=== PATIENT | female | born 1945 | race Asian ===

== ENCOUNTER → 2021-02-21 13:30 | Outpatient (CLI) | payer MEDICARE, OTHER, SELFPAY ==
--- NOTE | 2021-02-21 | DI.ECHO.S_ITS ---
[facility] +---------+ : : [address] : [place] : : : : [id number] : : : : Phone: [phone]---------+ Echocardiogram Report + + :Name: DAWIT TOMAS Study Date: 02/21/2021 Height: 61 in : :[facility] ReadingLocation: Weight: 119 lb : : Gender: Female BSA: 1.5 m2 : :: 1945 Age: 76 yrs BP: 164/110 mmHg: :Reason For Study: ATRIAL FIBRILLATION : :Ordering Physician: KASI, : :BIPIN Performed By: Soheila Aguilera : :Referring: BIPIN VILLASEÑOR : + + Interpretation Summary Left ventricular systolic function is severely reduced with an estimated ejection fraction of 20 to 25% with severe global hypokinesis that appears to be worse in the mid posterior wall which is akinetic. Left ventricular volumes are surprisingly normal with normal wall thickness. Diastolic function is challenging to assess because of tachycardia but filling pressures are likely significantly elevated. Global longitudinal strain is severely reduced at - 7.2% with sparing of the apex which can be seen in amyloidosis but clinical correlation is recommended. The right ventricle was mild to moderately enlarged with moderately reduced systolic function. There is severe pulmonary hypertension with the right ventricular systolic pressure estimated at 73 mmHg with a CVP of 15 mmHg. There is moderate biatrial enlargement. The cardiac valves appear anatomically normal but with probable at least moderate to severe mitral regurgitation and tricuspid regurgitation. The ascending aorta is mild to moderately enlarged. There is a moderately large left sided pleural effusion. The patient appeared to be in a sinus mechanism with identifiable P waves at 99 to 107 bpm. Procedure: A two-dimensional transthoracic echocardiogram with color flow and Doppler was performed. The study quality was technically good. There is no prior echocardiogram noted for this patient. The patient was in sinus rhythm with heart rates between 99-107 bpm during the exam. Left Ventricle: The left ventricle is normal in size. There is normal left ventricular wall thickness. Left ventricular systolic function is severely reduced. The ejection fraction is estimated to be 20-25%. Left ventricular global longitudinal strain average is -7.2%. There is severe global hypokinesis of the left ventricle. This appears to be worse in the mid posterior wall which appears to be akinetic. Diastolic function could not be accurately assessed due to tachycardia. But filling pressures are likely significantly elevated. Right Ventricle: The right ventricle is mild to moderately dilated. Right ventricular systolic function is moderately reduced. Atria: Both atria are moderately dilated. There is no Doppler evidence for an interatrial shunt. Mitral Valve: There is mild mitral annular calcification. The mitral valve leaflets are mildly calcified. There is moderate to severe mitral regurgitation. Aortic Valve: The aortic valve is trileaflet. The aortic valve is slightly calcified. The aortic valve opens well. There is no aortic valve stenosis. No aortic regurgitation is present. Tricuspid Valve: The tricuspid valve leaflets are thin and pliable. There is moderate to severe tricuspid regurgitation. There is severe pulmonary hypertension. The right ventricular systolic pressure is estimated to be at least 73 mmHg based on an estimated right atrial pressure of 15 mm Hg. Pulmonic Valve: The pulmonic valve leaflets are thin and pliable; valve motion is normal. There is trace pulmonic regurgitation. Great Vessels: The aortic root is normal size. The ascending aorta is mild- moderately enlarged. The aortic arch is at the upper limits of normal in size. The IVC is dilated (diameter is greater than 2.1 cm) and it collapses less than 50% with a sniff. This suggests a high right atrial pressure of 15 mm Hg. Pericardium/ Pleura There is a trace pericardial effusion that is circumferential. There is a moderately large left-sided pleural effusion. MMode/2D Measurements & Calculations LVIDd: 4.4 cm LVOT diam: 1.8 cm LVIDs: 4.1 cm Ao root diam: 2.9 cm FS: 7.0 % asc Aorta Diam: 3.9 cm IVSd: 0.96 cm Ao Arch Diam (Prox Trans): 3.0 cm LVPWd: 0.80 cm LV flores. diameter/BSA (cm/m^2): 2.9 LV sys. diameter/BSA (cm/m^2): 2.7 LA A2 area: 22.9 cm2 RA long axis: 5.1 cm LA A4 area: 18.8 cm2 RA area: 18.0 cm2 LA length (vol): 5.4 cm RA vol: 54.0 ml LA vol: 66.8 ml RA : 35.6 ml/m2 LA vol index: 44.1 ml/m2 IVC diam: 2.2 cm RVD1 (basal): 4.2 cm RVD2 (mid): 3.7 cm TAPSE: 1.0 cm Doppler Measurements & Calculations Ao V2 max: 80.8 cm/sec LVOT Max Haris: 50.1 cm/sec Ao V2 mean: 53.0 cm/sec LV V1 max P.0 mmHg Ao max P.6 mmHg LV V1 VTI: 7.1 cm Ao mean P.3 mmHg GAVIN(I,D): 1.7 cm2 Ao V2 VTI: 10.7 cm GAVIN(V,D): 1.6 cm2 sev ratio: 0.66 GAVIN indexed to BSA (cm^2/m^2): 1.1 MV E max haris: 115.5 cm/sec TR max haris: 404.9 cm/sec MV A max haris: 5.7 cm/sec TR max P.9 mmHg MV E/A: 20.4 PA pr(Accel): 58.4 mmHg Med Peak E' Haris: 5.2 cm/sec E/E' med: 22.3 Lat Peak E' Haris: 6.1 cm/sec E/E' lat: 18.9 E/e' average: 20.6 MV dec time: 0.15 sec MR ERO: 0.09 cm2 MR PISA: 1.4 cm2 SV(LVOT): 18.3 ml MR flow rate: 55.5 cm3/sec MR PISA radius: 0.47 cm Reading Physician:03:37 PM
--- NOTE | 2021-02-21 | DI.RAD.S_ITS ---
PROCEDURE: XR CHEST 2V INDICATIONS: Unspecified atrial fibrillation TECHNIQUE: 2 views of the chest were acquired. COMPARISON: None. FINDINGS: Surgical changes and devices: None. Lungs and pleura: Chronic appearing interstitial markings in both lung bases. No pleural effusions or pneumothorax. Mediastinum: Mediastinal contours are normal. Heart size is normal. Bones and chest wall: No suspicious bony abnormalities. Soft tissues appear unremarkable. IMPRESSION: Increased interstitial markings in both lungs with a reticular honeycombing pattern in the lung bases and periphery of the mid lungs. Findings are suggestive of chronic interstitial lung disease. A high-resolution CT of the chest would be recommended. Dictated by: Zachariah Sorenson M.D. on 02/21/2021 at 15:49 Approved by: Zachariah Sorenson M.D. on 02/21/2021 at 15:49
== END ==
PROVIDERS: PCP Internal Medicine; Referring Provider Internal Medicine; Visit Provider Internal Medicine
DX: I08.1 Rheumatic disorders of both mitral and tricuspid valves (principal); I48.91 Unspecified atrial fibrillation; I77.89 Other specified disorders of arteries and arterioles; J90 Pleural effusion, not elsewhere classified; I27.20 Pulmonary hypertension, unspecified
CPT/HCPCS: 71046; 93306; 93356

== ENCOUNTER → 2023-08-25 12:37 | Outpatient (CLI) | payer MEDICARE, OTHER, SELFPAY ==
--- NOTE | 2023-08-25 12:39 | DI.CT.S_ITS ---
PROCEDURE: CT CHEST HIGH RESOLUTION INDICATIONS: Idiopathic pulmonary fibrosis TECHNIQUE: Noncontrast 1.0 and 5.0 mm thick contiguous axial sections from the pulmonary apex to the posterior costophrenic angles, with 7 mm thick coronal and sagittal MIP reformats. 1 mm thick dynamic expiratory images acquired through the upper, mid, and lower lungs. 1.0 mm thick axial sections acquired from the concha to the posterior costophrenic angles in the prone end-inspiration position. For radiation dose reduction, the following was used: automated exposure control, adjustment of mA and/or kV according to patient size. [facility], CT, CT HIGH RESOLUTION CHEST, 07/30/2022, 10:35. Sparing FINDINGS: Image quality: Diagnostic. Lower Neck: No enlarged lymph nodes. Thyroid: No thyroid nodules which require sonographic follow up, per consensus guidelines. Axillae: No enlarged lymph nodes. Chest Wall: Unremarkable. Bones: Unremarkable. Lungs and Pleura: No pneumothorax or pleural effusions. Basilar dependent peripheral reticulation without subpleural sparing. There is bronchiectasis and honeycombing. No significant progression since 07/30/2022. Juxtapleural nodules with smooth margins, favoring benign intrapulmonary lymph nodes. These are stable from prior. For example, stable 3 millimeter juxtapleural nodule in the right upper lobe (series 2, image 94). Heart: Heart size is enlarged. No pericardial effusion. Three-vessel coronary calcifications. Thoracic Vessels: Ascending aortic aneurysm measuring 4.3 centimeter. Pulmonary artery is nondilated at 2.6 centimeter. Mediastinum and Yari: No enlarged lymph nodes. Esophagus: No wall thickening. No hiatal hernia. Upper Abdomen: Heterogeneous attenuation of the liver dome, likely representing geographic fat deposition. IMPRESSION: Stable definite UIP pattern of interstitial lung disease. No significant interval progression. No evidence of pulmonary hypertension. No suspicious nodule. Stable ascending aortic aneurysm measuring 4.3 centimeter. Yearly surveillance is recommended. Dictated by: Yifan Valenzuela M.D. on 08/25/2023 at 13:28 Approved by: Yifan Valenzuela M.D. on 08/25/2023 at 13:36
== END ==
PROVIDERS: PCP Internal Medicine; Referring Provider Internal Medicine Rheumatology; Visit Provider Internal Medicine Rheumatology
DX: J84.112 Idiopathic pulmonary fibrosis (principal); J84.9 Interstitial pulmonary disease, unspecified; I71.21 Aneurysm of the ascending aorta, without rupture; M34.9 Systemic sclerosis, unspecified; I73.01 Raynaud's syndrome with gangrene; I25.10 Atherosclerotic heart disease of native coronary artery without angina pectoris; I27.20 Pulmonary hypertension, unspecified; I51.7 Cardiomegaly; M81.0 Age-related osteoporosis without current pathological fracture
CPT/HCPCS: 71250